=== PATIENT | male | born 1985 | race Caucasian/White ===

== ENCOUNTER 2022-04-03 21:27 | Emergency (ER) | payer OTHER, SELFPAY ==
[2022-04-03 21:35] VITALS: BP 137/88; PULSE 92; RESP 16; TEMP 36.1; O2SAT 100
--- NOTE | 2022-04-03 22:14 | ED.MALEGU ---
HPI - Male Genitourinary General Chief complaint: Urogenital-Male Stated complaint: STD check Time Seen by Provider: 04/03/22 21:44 History of Present Illness HPI Narrative: 36-year-old male presents the emergency room for evaluation of a lump inside of his urethra . Patient also complains of dysuria. Admits to recent unprotected intercourse. Patient denies suprapubic pain denies testicular pain denies fever. Denies purulent discharge. Denies rashes lesions or infestation. Related Data Allergies Allergy/AdvReac Type Severity Reaction Status Date / Time amoxicillin Allergy Unknown Verified 04/03/22 21:39 Exam Narrative: GENERAL: Well-appearing, well-nourished, no physical limitations, and in no acute distress. HEAD: Normocephalic, atraumatic. EYES: Conjunctivae normal, PERRLA and EOMI. CHEST: Clear to auscultation. No respiratory distress. No wheezes rales or rhonchi. No tenderness. HEART: Regular rate and rhythm. No murmur heard. Normal peripheral pulses. ABDOMEN: Soft, nontender, nondistended, normal active bowel sounds. EXTREMITIES: Normal range of motion. No edema. No clubbing or cyanosis SKIN: Warm, dry, no rash. No noted wounds NEURO: No focal deficits. Alert and oriented x3. MAEW. CN's II-XI intact bilaterally, normal gait PSYCH: Cooperative. Normal mood and affect. Course Vital Signs Vital signs: Vital Signs Temperature 36.1 C L 04/03/22 21:35 Pulse Rate 92 04/03/22 21:35 Respiratory Rate 16 04/03/22 21:35 Blood Pressure 137/88 04/03/22 21:35 Pulse Oximetry 100 04/03/22 21:35 Oxygen Delivery Room Air 04/03/22 21:35 Temperature 36.1 C L 04/03/22 21:35 Pulse Rate 92 04/03/22 21:35 Respiratory Rate 16 04/03/22 21:35 Blood Pressure 137/88 04/03/22 21:35 Pulse Oximetry 100 04/03/22 21:35 Oxygen Delivery Room Air 04/03/22 21:35 MDM - Male Genitourinary Lab Data Labs: Lab Results 04/03/22 04/03/22 04/03/22 Range/Units 21:48 21:49 21:49 C.trachomatis RNA (TMA) Pending N.gonorrhoeae RNA (TMA) Pending Trichomonas Direct ID Cancelled T. vaginalis Amp RNA Pending Discharge Plan Discharge Clinical Impression: High risk sexual behavior, Encounter for screening for infections with a predominantly sexual mode of transmission Patient Disposition: Home, Self-Care Condition: Stable Instructions: Antibiotic Form, Chlamydia (ED), Gonorrhea (ED), Trichomoniasis (ED) Prescriptions: New doxycycline monohydrate 100 mg capsule 100 mg PO BID 7 Days Qty: 14 0RF Follow-up/Referrals: PHYSICIAN NOT ON STAFF,NONSTAFF [Primary Care Provider] - Yony Archer MD [Physician] - Time of Disposition: 22:19
[2022-04-03] MEDS: cefTRIAXone 1 GM VIAL 0.5 GM IM (22:29)
[2022-04-03] MEDS: metroNIDAZOLE 250 MG TABLET 2000 MG PO (22:29)
[2022-04-03] MEDS: LIDOCAINE HCL 1% LOCAL INJ 20 ML VIAL (22:30)
[2022-04-03 22:39] LABS: Appearance Urine Clear (Clear); Bilirubin Urine Negative (Negative); Blood Urine Negative (Negative); Color Urine Yellow (Yellow); Glucose Urine UA Negative (Negative); Ketones Urine Negative (Negative); Leukocyte Esterase Ur Negative LEU/UL (Negative); Nitrate Urine Negative (Negative); Protein Urine Negative (Negative); Urobilinogen Urine 0.2 mg/dL (<2.0)
[2022-04-03 22:43] LABS: Bacteria Urine Trace /hpf; RBC Urine 0-2 /hpf (0-2); WBC Urine 0-3 /hpf
[2022-04-03 22:44] LABS: Add Urine Microscopic? NO
[2022-04-03 23:00] VITALS: RESP 14
[2022-04-07 07:33] LABS: Rapid Plasma Reagin Non-Reactive (NonReactive)
== END 2022-04-03 23:00 | disposition home or self-care (01) ==
PROVIDERS: Emergency Provider Nurse Practitioner Family
DX: R30.0 Dysuria (principal); Z11.3 Encounter for screening for infections with a predominantly sexual mode of transmission; Z72.51 High risk heterosexual behavior
CPT/HCPCS: 36415; 81003; 86592; 87491; 87591; 87661; 96372; 99283; A9270; J0696